=== PATIENT | female | born 1990 | race Caucasian/White ===

== ENCOUNTER → 2020-04-06 12:31 | Outpatient (BNVA) | payer SELFPAY | PROVIDERS: Visit Provider Emergency Medicine | DX: J01.00 Acute maxillary sinusitis, unspecified (principal); J20.8 Acute bronchitis due to other specified organisms; B96.89 Other specified bacterial agents as the cause of diseases classified elsewhere; F17.200 Nicotine dependence, unspecified, uncomplicated; R68.89 Other general symptoms and signs | CPT/HCPCS: 87400; 87635 ==